=== PATIENT | female | born 2000 | race Caucasian/White ===

== ENCOUNTER → 2023-10-31 13:41 | Outpatient (REF) | payer BC, SELFPAY | LOC: MRI 3T 13:41 | PROVIDERS: ATTENDING PHYSICIAN Orthopaedic Surgery; FAMILY PHYSICIAN Physician Assistant Medical | DX: M25.511 Pain in right shoulder (principal) | CPT/HCPCS: 23350; 73040; 73222 ==

== ENCOUNTER 2023-12-08 06:28 | Day surgery (SDC) | payer BC, SELFPAY ==
[2023-12-08] VITALS (12 sets, daily range): BP systolic 90–112; BP diastolic 54–77; BMI 26.9
[2023-12-08] MEDS: NORMOSOL-R 1000 IV (09:50)
[2023-12-08] MEDS: TYLENOL 1000 MG PO (09:54)
[2023-12-08] MEDS: CELEBREX 200 MG PO (09:54)
[2023-12-08] MEDS: DILAUDID 0.25 MG IV (14:24)
== END 2023-12-08 16:03 | disposition home or self-care (01) ==
LOC: SDS 06:28
PROVIDERS: ATTENDING PHYSICIAN Orthopaedic Surgery
DX: S43.014A Anterior dislocation of right humerus, initial encounter (principal); X58.XXXA Exposure to other specified factors, initial encounter
CPT/HCPCS: 29806